=== PATIENT | female | born 1955 | race Caucasian/White ===

== ENCOUNTER 2021-06-27 14:37 | Observation (INO) | payer MEDICARE ==
[~2021-06-27] VITALS: Ht 152.4 cm; Wt 72.6 kg
[2021-06-27] MEDS ORDERED: MORPHINE SULFATE 4 MG/ML INJ. IVP ONE (14:45)
[2021-06-27] MEDS ORDERED: ASPIRIN 325 MG TABLET PO ONE (14:45)
[2021-06-27 15:18] LABS: BASO # 0.1 x10^3/uL (0.0-0.2); BASO % 1 % (0-3); EOS # 0.1 x10^3/uL (0.0-0.7); EOS % 1 % (0-3); HEMATOCRIT 38.9 % (36.0-47.0); HEMOGLOBIN 13.3 g/dL (12.0-15.5); LYMPH # 1.1 x10^3/uL (1.0-4.8); LYMPH % 15 % (24-48); MEAN CORPUSCULAR HEMOGLOBIN 32 pg (25-35); MEAN CORPUSCULAR HGB CONC 34 g/dL (31-37); MEAN CORPUSCULAR VOLUME 92 fL (79-100); MONO # 0.6 x10^3/uL (0.0-1.1); MONO % 8 % (0-9); NEUT # 5.7 x10^3/uL (1.8-7.7); NEUT % 76 % (31-73); PLATELET COUNT 106 x10^3/uL (140-400); RED BLOOD COUNT 4.21 x10^6/uL (3.50-5.40); RED CELL DISTRIBUTION WIDTH 13.9 % (11.5-14.5); WHITE BLOOD COUNT 7.5 x10^3/uL (4.0-11.0)
[2021-06-27 15:29] LABS: PROTHROMBIN TIME PATIENT 13.8 SEC (11.7-14.0)
--- NOTE | 2021-06-27 15:59 | RAD ---
XR CHEST 1V History: Back pain Comparison: None. Technique: AP radiograph of the chest. Findings: The lungs are adequately and symmetrically inflated. There are minimal bibasilar opacities likely ate lectasis. No pleural effusion or pneumothorax. The cardiomediastinal silhouette and pulmonary vascula ture are within normal limits. No acute osseous abnormality. Soft tissues are unremarkable. Impression: 1. Minimal bibasilar opacities likely represent atelectasis. Electronically signed by: Chris Siddiqui MD (06/27/2021 3:05 PM) [id number]
[2021-06-27] MEDS ORDERED: IV NORMAL SALINE 1000ML BAG 1,000 ML IV ONE (16:00)
[2021-06-27 16:40] LABS: ALBUMIN 3.2 g/dL (3.4-5.0); ALBUMIN/GLOBULIN RATIO 0.8 (1.0-1.7); CALCIUM 8.9 mg/dL (8.5-10.1); CREATININE 1.2 mg/dL (0.6-1.0); GFR 44.7; MAGNESIUM 2.1 mg/dL (1.8-2.4); POTASSIUM 4.2 mmol/L (3.5-5.1); TOTAL BILIRUBIN 0.6 mg/dL (0.2-1.0); TOTAL PROTEIN 7.3 g/dL (6.4-8.2)
--- NOTE | 2021-06-27 17:39 | PHYS DOC ---
Past Medical History Additional Past Medical Histor: COVID X 2 (DULCE BRADY MD) Past Surgical History: Tonsillectomy, Other Additional Past Surgical Histo: R BREAST LUMPECTOMY (DULCE BRADY MD) Smoking Status: Current Every Day Smoker Additional Information: 1 PPD Alcohol Use: None (DULCE BRADY MD) General Adult EDM: Chief Complaint: BACK PAIN - NO INJURY HPI: HPI: Patient is a 66 year old female who presents by EMS for upper back pain and upper abdominal pain. Patient was seen in the emergency department yesterday at [facility], evaluation did not result in anything. Patient was instructed to take Maalox or omeprazole at home. Patient states that she now has upper back pain as well as upper abdominal pain. Patient has no other specific symptoms. No fevers, no chills, no constipation, no nausea vomiting. Patient denies chest pain. (DULCE BRADY MD) Review of Systems: Review of Systems: Constitutional: Denies fever or chills. [] Eyes: Denies change in visual acuity. [] HENT: Denies nasal congestion or sore throat. [] Respiratory: Denies cough or shortness of breath. [] Cardiovascular: Denies chest pain or edema. [] GI: Positive epigastric abdominal pain, no nausea, vomiting, bloody stools or diarrhea. [] : Denies dysuria. [] Musculoskeletal: Positive upper thoracic back pain, mild to moderate [] Integument: Denies rash. [] Neurologic: Denies headache, focal weakness or sensory changes. [] Endocrine: Denies polyuria or polydipsia. [] Lymphatic: Denies swollen glands. [] Psychiatric: Denies depression or anxiety. [] (DULCE BRADY MD) Heart Score: C/O Chest Pain: No Risk Factors: Risk Factors: DM, Current or recent (<one month) smoker, HTN, HLP, family history of CAD, obesity. Risk Scores: Score 0 - 3: 2.5% MACE over next 6 weeks - Discharge Home Score 4 - 6: 20.3% MACE over next 6 weeks - Admit for Clinical Observation Score 7 - 10: 72.7% MACE over next 6 weeks - Early Invasive Strategies (DULCE BRADY MD) Current Medications: Current Medications Medications (Trade) Dose Ordered Sig/Yeny Start Time Stop Time Status Last Admin Dose Admin Aspirin (Apolinar Aspirin) 325 mg 1X ONCE 06/27/21 14:45 06/27/21 14:50 DC 06/27/21 15:13 325 MG Morphine Sulfate (Morphine Sulfate) 4 mg 1X ONCE 06/27/21 14:45 06/27/21 14:50 DC 06/27/21 15:13 4 MG Sodium Chloride 1,000 ml @ 1,000 mls/hr 1X ONCE 06/27/21 16:00 06/27/21 16:59 DC 06/27/21 16:21 1,000 MLS/HR (DULCE BRADY MD) Allergies: Allergies: Allergies Coded Allergies Type Severity Reaction Last Updated Verified No Known Drug Allergies 06/27/21 No (DULCE BRADY MD) Physical Exam: PE: Constitutional: Well developed, well nourished, no acute distress, non-toxic appearance. [] HENT: Normocephalic, atraumatic, bilateral external ears normal, oropharynx moist, no oral exudates, nose normal. [] Eyes: PERRLA, EOMI, conjunctiva normal, no discharge. [] Neck: Normal range of motion, no tenderness, supple, no stridor. [] Cardiovascular:Heart rate regular rhythm, no murmur [] Lungs & Thorax: Bilateral breath sounds clear to auscultation [] Abdomen: Bowel sounds normal, soft, no tenderness, no masses, no pulsatile masses. [] Skin: Warm, dry, no erythema, no rash. [] Back: No tenderness, no CVA tenderness. [] Extremities: No tenderness, no cyanosis, no clubbing, ROM intact, no edema. [] Neurologic: Alert and oriented X 3, normal motor function, normal sensory function, no focal deficits noted. [] Psychologic: Affect normal, judgement normal, mood normal. [] (DULCE BRADY MD) Current Patient Data: Labs: Laboratory Tests Test 06/27/21 15:05 06/27/21 16:00 White Blood Count 7.5 x10^3/uL (4.0-11.0) Red Blood Count 4.21 x10^6/uL (3.50-5.40) Hemoglobin 13.3 g/dL (12.0-15.5) Hematocrit 38.9 % (36.0-47.0) Mean Corpuscular Volume 92 fL (79-100) Mean Corpuscular Hemoglobin 32 pg (25-35) Mean Corpuscular Hemoglobin Concent 34 g/dL (31-37) Red Cell Distribution Width 13.9 % (11.5-14.5) Platelet Count 106 x10^3/uL (140-400) L Neutrophils (%) (Auto) 76 % (31-73) H Lymphocytes (%) (Auto) 15 % (24-48) L Monocytes (%) (Auto) 8 % (0-9) Eosinophils (%) (Auto) 1 % (0-3) Basophils (%) (Auto) 1 % (0-3) Neutrophils # (Auto) 5.7 x10^3/uL (1.8-7.7) Lymphocytes # (Auto) 1.1 x10^3/uL (1.0-4.8) Monocytes # (Auto) 0.6 x10^3/uL (0.0-1.1) Eosinophils # (Auto) 0.1 x10^3/uL (0.0-0.7) Basophils # (Auto) 0.1 x10^3/uL (0.0-0.2) Prothrombin Time 13.8 SEC (11.7-14.0) Prothrombin Time INR 1.1 (0.8-1.1) Sodium Level 137 mmol/L (136-145) Potassium Level 4.2 mmol/L (3.5-5.1) Chloride Level 103 mmol/L (98-107) Carbon Dioxide Level 24 mmol/L (21-32) Anion Gap 10 (6-14) Blood Urea Nitrogen 12 mg/dL (7-20) Creatinine 1.2 mg/dL (0.6-1.0) H Estimated GFR (Cockcroft-Gault) 44.7 BUN/Creatinine Ratio 10 (6-20) Glucose Level 111 mg/dL (70-99) H Calcium Level 8.9 mg/dL (8.5-10.1) Magnesium Level 2.1 mg/dL (1.8-2.4) Total Bilirubin 0.6 mg/dL (0.2-1.0) Gamma Glutamyl Transpeptidase 31 U/L (5-55) Aspartate Amino Transferase (AST) 15 U/L (15-37) Alanine Aminotransferase (ALT) 26 U/L (14-59) Alkaline Phosphatase 72 U/L (46-116) Troponin I High Sensitivity < 4 ng/L (4-50) L JE-Xeu-[id number]-Type Natriuretic Peptide 233 pg/mL (0-124) H Total Protein 7.3 g/dL (6.4-8.2) Albumin 3.2 g/dL (3.4-5.0) L Albumin/Globulin Ratio 0.8 (1.0-1.7) L Lipase 94 U/L (73-393) Thyroid Stimulating Hormone (TSH) 1.010 uIU/mL (0.358-3.74) Laboratory Tests 06/27/21 15:05 Laboratory Tests 06/27/21 16:00 Vital Signs: Vital Signs Date Time Temp Pulse Resp B/P (MAP) Pulse Ox O2 Delivery O2 Flow Rate FiO2 06/27/21 16:34 86 93/52 (66) 92 Room Air 06/27/21 15:13 24 06/27/21 14:37 98.3 98.3 (DULCE BRADY MD) EKG: EKG: [] (DULCE BRADY MD) Radiology/Procedures: Radiology/Procedures: No acute abnormalities on chest x-ray [] Impression: Upper abdominal pain, upper thoracic pain (DULCE BRADY MD) Course & Med Decision Making: Course & Med Decision Making Pertinent Labs and Imaging studies reviewed. (See chart for details) 66-year-old female presents with upper abdominal and upper back pain. CBC, CMP, chest x-ray, EKG no acute changes. Awaiting urinary studies at this moment. Patient was transferred to Dr. Byrne who came on at 1800 at the end of my shift. (DULCE BRADY MD) Course & Med Decision Making 66-year-old female presents with upper abdominal pain and upper back pain. However when I spoke to her further she stated that she actually started having jaw pain bilateral today as well and the pain is localized to her upper back. It is slightly pleuritic in nature. She has no known DVT risk factors however she has not seen a PCP in a long time. She has a 50-year pack per day smoking history. She has not seen a PCP in several years and has never had her cholesterol or other issues checked. This may be an anginal equivalent in a woman with no follow-up. Therefore I will admit her for further cardiac work-up and monitoring. (LUIS MANUEL BYRNE MD) Dragon Disclaimer: Dragon Disclaimer: This electronic medical record was generated, in whole or in part, using a voice recognition dictation system. (DULCE BRADY MD) Departure Departure Impression: Primary Impression: Jaw pain Additional Impressions: Upper back pain ACS (acute coronary syndrome) Disposition: ADMITTED INPATIENT Condition: STABLE Referrals: UNKNOWN PCP NAME (PCP) DULCE BRADY MD June 27, 2021 17:39 LUIS MANUEL BYRNE MD June 27, 2021 21:19
[2021-06-27] MEDS ORDERED: LIDOCAINE 1%/EPI 1:100,000 20 ML VIAL. INJ ONE (17:45)
[2021-06-27] MEDS ORDERED: DIPHTH,PERTUSS(ACELL),TET TOX 0.5 ML DISP.SYRIN. VAX IM ONE (17:45)
[2021-06-27 17:49] LABS: BARBITURATES NEG (NEG); BENZODIAZEPINES NEG (NEG); CANNABINOIDS NEG (NEG); COCAINE NEG (NEG); METHADONE NEG (NEG); OPIATES POS (NEG); PHENCYCLIDINE NEG (NEG)
[2021-06-27 17:54] LABS: BACTERIA,URINE FEW /HPF (0-FEW); WBC,URINE 0 /HPF (0-4)
[2021-06-27 17:55] LABS: HYALINE CASTS, URINE OCCASIONAL /HPF
[2021-06-27 18:02] LABS: AMPHETAMINE/METHAMPHETAMINE NEG (NEG)
[2021-06-28 00:45] VITALS: BP 142/83
[2021-06-28 02:24] VITALS: BP 128/65
[2021-06-28] MEDS ORDERED: ACET325T9 PO (02:41)
[2021-06-28] MEDS ORDERED: VENTOLIN HFA18 GM INH (02:41)
[2021-06-28 07:00] VITALS: BP 119/55
[2021-06-28 11:00] VITALS: BP 144/64
[2021-06-28] MEDS ORDERED: CYCL10TA19 PO (11:21)
--- NOTE | 2021-06-28 14:01 | EKG ---
[facility] [address] [place] [address] Test Date: 2021-06-27 Test Time: 14:40:40 Pat Name: ANA BONDS Department: Room: 4 Gender: F Steffen House Supervisor: : 1955 Requested By: DULCE Mckinney Number: [id number] Reading MD: Edison Renee Measurements Intervals [place] Rate: 104 P: 85 OH: 136 QRS: 2 QRSD: 76 T: 47 QT: 318 QTc: 418 Interpretive Statements SINUS TACHYCARDIA Electronically Signed On 06-29-2021 10:17:41 CDT by Edison Renee
--- NOTE | 2021-07-10 12:05 | SSS ---
DATE OF SERVICE: 07/10/2021 ADMIT DATE: 06/27/2021 CHIEF COMPLAINT: Back pain. HISTORY OF PRESENT ILLNESS: The patient is a pleasant 66-year-old female who presented to the ER with back pain. She apparently had been seen at [facility] the previous day. She also had some upper abdominal pain and weakness. I discussed the case with ER physician. We admitted her, consulted Cardiology. The patient was discharged shortly after that. PAST MEDICAL HISTORY: Tonsillectomy, right breast lumpectomy, tobacco abuse, COVID-19. ALLERGIES: None. FAMILY HISTORY: Coronary artery disease. SOCIAL HISTORY: She does smoke. No drink or drugs. MEDICATIONS: Reviewed. Please refer to the MRAD. REVIEW OF SYSTEMS: GENERAL: No history of weight change, weakness or fevers. SKIN: No bruising, hair changes or rashes. EYES: No blurred, double or loss of vision. NOSE AND THROAT: No history of nosebleeds, hoarseness or sore throat. HEART: No history of palpitations, chest pain or shortness of breath on exertion. LUNGS: Denies cough, hemoptysis, wheezing or shortness of breath. GASTROINTESTINAL: Denies changes in appetite, nausea, vomiting, diarrhea or constipation. GENITOURINARY: No history of frequency, urgency, hesitancy or nocturia. NEUROLOGIC: Denies history of numbness, tingling, tremor or weakness. PSYCHIATRIC: No history of panic, anxiety or depression. ENDOCRINE: No history of heat or cold intolerance, polyuria or polydipsia. EXTREMITIES: Denies muscle weakness, joint pain, pain on walking or stiffness. MUSCULOSKELETAL: She complains of back pain. PHYSICAL EXAMINATION: VITALS: Within normal limits and are stable. GENERAL: No apparent distress. Alert and oriented. HEENT: Normal cephalic atraumatic, external auditory canals are patent. EYES: Extraocular muscles are intact, pupils are equally round and reactive to light and accommodation. MUSCULOSKELETAL: Well developed, well nourished, good range of motion. ENDOCRINE: No thyromegaly was palpated. LYMPHATICS: No cervical chain or axillary nodes were noted. HEMATOPOIETIC: No bruising. NECK: Supple, no JVD, no thyromegaly was noted. LUNGS: Clear to auscultation in all lung garcia without rhonchi or wheezing. HEART: RRR, S1, S2 present. Peripheral pulses intact, no obvious murmurs were noted. ABDOMEN: Soft, nontender. Positive bowel sounds no organomegaly, normal bowel sounds. EXTREMITIES: Without any cyanosis, clubbing, or edema. Pedal pulses intact, Homans sign is negative. NEUROLOGIC: Normal speech, normal tone. A and O x 3, moves all extremities, no obvious focal deficits. PSYCHIATRIC: Normal affect, normal mood. Stable. SKIN: No ulcerations or rashes, good skin turgor, no jaundice. VASCULAR: Good capillary refill, neurovascular bundle appears to be intact. ASSESSMENT AND PLAN: Resolving back pain, suspect musculoskeletal etiology. The patient was admitted. We gave her some p.r.n. pain meds and discharge. DISPOSITION: Home. ACTIVITY: As tolerated. DIET: Low sodium. MEDICATIONS: Please see the MRAD. Total time [address]: Natasha TID: [id number]
== END 2021-06-28 11:19 | disposition home or self-care (01) ==
LOC: ER 14:37 → 6 SOUTH 06-28 00:16 → UNDOADMIN 06-28 00:16 → 6 SOUTH 06-28 00:16 → ER 06-28 00:37 → UNDODISIN 06-28 12:25 → UNDODISOB 07-29 11:50
PROVIDERS: ADMIT Pediatrics Neonatal-Perinatal Medicine; ATTEND Pediatrics Neonatal-Perinatal Medicine
DX: M54.6 Pain in thoracic spine (principal); R68.84 Jaw pain; I24.9 Acute ischemic heart disease, unspecified; R10.10 Upper abdominal pain, unspecified; Z90.49 Acquired absence of other specified parts of digestive tract; F17.200 Nicotine dependence, unspecified, uncomplicated; Z79.899 Other long term (current) drug therapy; Z98.890 Other specified postprocedural states; Z79.82 Long term (current) use of aspirin
CPT/HCPCS: 36415; 71045; 80053; 80307; 81001; 82977; 83690; 83735; 83880; 84443; 84484; 85025; 85610; 93005; 96361; 96374; G0378; G0379; J2270; J7030; 99285-25